=== PATIENT | male | born 1970 | race Caucasian/White ===

== ENCOUNTER → 2017-11-09 | Outpatient (CLI) | payer MEDICAID ==
[~2017-11-09] MED LIST: ALBU90AE IH; CYCL-259 PO; DOXY100C15 PO; GUAI600T31 PO; HYDR25TA11 PO; IBUP-1223 PO; IPRA12.9 IH; PRED20TA PO; RISP2TAB35 PO
[2017-11-09 14:55] LABS: MICROSCOPIC NOT IND
[2017-11-09 14:57] LABS: CULTURE INDICATED? NO
[2017-11-09 14:59] LABS: BASOPHILS # (AUTO) 0.07 x10^3/uL (0-0.1); BASOPHILS % (AUTO) 1 % (0-1); EOSINOPHILS # (AUTO) 0.48 x10^3/uL (0-0.4); EOSINOPHILS % (AUTO) 5 % (1-7); LYMPHOCYTES # (AUTO) 2.63 x10^3/uL (1-3.4); LYMPHOCYTES % (AUTO) 28 % (22-44); MD NO; MEAN CORPUSCULAR HEMOGLOBIN 30.2 pg (27.5-34.5); MEAN CORPUSCULAR HGB CONC 34.2 g/dL (33.2-36.2); MEAN CORPUSCULAR VOLUME 88.4 fL (81-97); MEAN PLATELET VOLUME 8.9 fL (7.4-10.4); MONOCYTES # (AUTO) 0.78 x10^3/uL (0.2-0.8); MONOCYTES % (AUTO) 8 % (2-9); NEUTROPHILS # (AUTO) 5.61 x10^3/uL (1.8-6.8); NEUTROPHILS % (AUTO) 59 % (42-75); PLATELET COUNT 202 x10^3/uL (130-400); RED BLOOD COUNT 5.46 x10^6/uL (4.38-5.82); RED CELL DISTRIBUTION WIDTH 15.2 % (9.4-14.8)
[2017-11-09 15:07] LABS: ALANINE AMINOTRANSFERASE 25 U/L (12-78); ALBUMIN 3.9 g/dL (3.4-5.0); ANION GAP 8 mmol/L (5-15); CALCIUM 8.9 mg/dL (8.5-10.1); CHLORIDE 104 mmol/L (98-107); CREATININE 1.11 mg/dL (0.7-1.3)
[2017-11-09 15:10] LABS: ALKALINE PHOSPHATASE 75 U/L (45-117); BILIRUBIN,TOTAL 0.5 mg/dL (0.2-1.0); TOTAL PROTEIN 7.4 g/dL (6.4-8.2)
[2017-11-09 15:11] LABS: INTERNATIONAL NORMALIZED RATIO 0.98 (0.93-1.1); PROTHROMBIN TIME 10.2 Seconds (9.6-11.5)
== END | disposition home or self-care (01) ==
LOC: STAR 13:56
PROVIDERS: ATTEND Orthopaedic Surgery Orthopaedic Surgery of the Spine
DX: Z01.818 Encounter for other preprocedural examination (principal)
CPT/HCPCS: 36415; 71046; 80053; 81003; 85025; 85610; 85730; 93005

== ENCOUNTER 2017-11-16 05:35 | Day surgery (SDC) | payer MEDICAID ==
[~2017-11-16] VITALS: Ht 162.6 cm; Wt 99.0 kg
[~2017-11-16 05:35] MED LIST changes: +ALBU18HF INH; +BACL20TA PO; +ENAL20TA PO; +FLUT1AER INH; +GABA800T2 PO; +IPRA12.9 INH; +LORA10TA3 PO; +PANT20TA3 PO; +PEG15DRO2 EACHEYE; +SERT50TA5 PO; +TRAZ-137 PO
[2017-11-16] MEDS ORDERED: LACTATED RINGERS 1,000 ML IV SCH (06:06)
[2017-11-16 06:09] VITALS: BP 133/82
== END 2017-11-16 06:49 | disposition home or self-care (01) ==
LOC: OUT 05:35
PROVIDERS: ATTEND Orthopaedic Surgery Orthopaedic Surgery of the Spine
DX: M51.26 Other intervertebral disc displacement, lumbar region (principal); Z53.9 Procedure and treatment not carried out, unspecified reason; F41.9 Anxiety disorder, unspecified; F32.9 Major depressive disorder, single episode, unspecified; J44.9 Chronic obstructive pulmonary disease, unspecified; F17.210 Nicotine dependence, cigarettes, uncomplicated; Z72.89 Other problems related to lifestyle; Z79.899 Other long term (current) drug therapy
CPT/HCPCS: J7120

== ENCOUNTER 2017-11-22 08:29 | Day surgery (SDC) | payer MEDICAID ==
[~2017-11-22] VITALS: Ht 162.6 cm; Wt 101.5 kg
[~2017-11-22 08:29] MED LIST changes: +BUPIVACAINE/PF-EPI 0.25% 1:200K ONE; +EPINEPHRINE 1 MG/ML, 1ML ONE; +LIDOCAINE/PF 0.5% ,50ML ONE; +THROMBIN 5,000 UNIT VIAL TP ONE; +VANCOMYCIN 1,000 MG ONE
[2017-11-22 09:02] VITALS: BP 120/78
[2017-11-22] MEDS ORDERED: LACTATED RINGERS 1,000 ML IV SCH (09:07)
[2017-11-22] MEDS ORDERED: ROCURONIUM 10 MG/ML,10ML ONE (09:57)
[2017-11-22] MEDS ORDERED: PROPOFOL 10 MG/ML, 20ML ONE (09:57)
[2017-11-22] MEDS ORDERED: ONDANSETRON 2MG/ML, 2ML ONE (09:57)
[2017-11-22] MEDS ORDERED: DEXAMETHASONE 4 MG/ML, 1ML ONE (09:57)
[2017-11-22] MEDS ORDERED: GLYCOPYRROLATE 0.2MG/1ML, 5ML ONE (09:57)
[2017-11-22] MEDS ORDERED: METOCLOPRAMIDE 5 MG/ML, 2ML ONE (09:57)
[2017-11-22] MEDS ORDERED: NEOSTIGMINE 1 MG/ML, 10ML ONE (09:57)
[2017-11-22] MEDS ORDERED: CEFAZOLIN 1,000 MG ONE (09:57)
[2017-11-22] MEDS ORDERED: MIDAZOLAM 1 MG/ML, 2ML IV PRN (10:00)
[2017-11-22] MEDS ORDERED: OXYcodone 5 MG/5 ML ORAL.SOL UDC PO PRN (10:00)
[2017-11-22] MEDS ORDERED: MEPERIDINE/PF 25MG/0.5ML IVPush PRN (10:00)
[2017-11-22] MEDS ORDERED: MIDAZOLAM 1 MG/ML, 2ML ONE (10:00)
[2017-11-22] MEDS ORDERED: HYDROmorphone 1 MG/ML, 1ML IV PRN (10:00)
[2017-11-22] MEDS ORDERED: ONDANSETRON 2MG/ML, 2ML IVPush PRN (10:00)
[2017-11-22] MEDS ORDERED: FENTANYL PF 100 MCG/2ML ONE ×3 (10:00→13:20)
[2017-11-22] MEDS ORDERED: LABETALOL 5MG/ML, 20ML IV PRN (10:00)
[2017-11-22] MEDS ORDERED: LIDOCAINE/PF 0.5% ,50ML ONE (10:28)
[2017-11-22] MEDS ORDERED: THROMBIN 5,000 UNIT VIAL TP ONE (10:28)
[2017-11-22] MEDS ORDERED: MEPERIDINE/PF 100 MG/ML ONE (12:10)
[2017-11-22] MEDS ORDERED: OXYcodone 5 MG/5 ML ORAL.SOL UDC ONE (13:20)
[2017-11-22] MEDS: FENTANYL PF 100 MCG/2ML IV PRN ×2 (13:23→13:35)
== END 2017-11-22 16:28 | disposition home or self-care (01) ==
LOC: OR 08:29 → OUT 16:28
PROVIDERS: ATTEND Orthopaedic Surgery Orthopaedic Surgery of the Spine
DX: M51.16 Intervertebral disc disorders with radiculopathy, lumbar region (principal); F41.9 Anxiety disorder, unspecified; F32.9 Major depressive disorder, single episode, unspecified; J44.9 Chronic obstructive pulmonary disease, unspecified; F17.210 Nicotine dependence, cigarettes, uncomplicated; Z79.899 Other long term (current) drug therapy; Z72.89 Other problems related to lifestyle
CPT/HCPCS: 63030; 72100; J0171; J0690; J1100; J2001; J2175; J2250; J2405; J2704; J2710; J2765; J3010; J3370; J3490; J7120

== ENCOUNTER 2018-02-03 19:41 | Emergency (ER) | payer MEDICAID ==
[~2018-02-03] VITALS: Ht 162.6 cm; Wt 105.0 kg
[~2018-02-03 19:41] MED LIST changes: -BUPIVACAINE/PF-EPI 0.25% 1:200K ONE; -EPINEPHRINE 1 MG/ML, 1ML ONE; -LIDOCAINE/PF 0.5% ,50ML ONE; -THROMBIN 5,000 UNIT VIAL TP ONE; -VANCOMYCIN 1,000 MG ONE
[2018-02-03 20:40] LABS: BASOPHILS # (AUTO) 0.12 x10^3/uL (0-0.1); BASOPHILS % (AUTO) 1 % (0-1); EOSINOPHILS # (AUTO) 0.42 x10^3/uL (0-0.4); EOSINOPHILS % (AUTO) 3 % (1-7); LYMPHOCYTES % (AUTO) 18 % (22-44); MD NO; MEAN CORPUSCULAR HGB CONC 34.2 g/dL (33.2-36.2); MEAN CORPUSCULAR VOLUME 90.6 fL (81-97); MEAN PLATELET VOLUME 9.6 fL (7.4-10.4); MONOCYTES # (AUTO) 0.77 x10^3/uL (0.2-0.8); MONOCYTES % (AUTO) 6 % (2-9); NEUTROPHILS # (AUTO) 8.97 x10^3/uL (1.8-6.8); NEUTROPHILS % (AUTO) 72 % (42-75); PLATELET COUNT 213 x10^3/uL (130-400); RED BLOOD COUNT 5.48 x10^6/uL (4.38-5.82); RED CELL DISTRIBUTION WIDTH 14.6 % (9.4-14.8)
[2018-02-03 20:47] LABS: ALBUMIN 3.4 g/dL (3.4-5.0); ANION GAP 7 mmol/L (5-15); CALCIUM 8.7 mg/dL (8.5-10.1); CHLORIDE 104 mmol/L (98-107)
[2018-02-03] MEDS ORDERED: HYDROcodone/APAP 5/325 TABLET ONE (20:48)
[2018-02-03 20:50] VITALS: BP 126/67
[2018-02-03 20:51] LABS: TROPONIN I < 0.015 ng/mL (0.000-0.045)
[2018-02-03] MEDS ORDERED: HYDROcodone/APAP 5/325 TABLET PO ONE (21:00)
== END 2018-02-03 21:48 | disposition home or self-care (01) ==
LOC: ED 21:12
DX: K85.00 Idiopathic acute pancreatitis without necrosis or infection (principal); R07.89 Other chest pain; F17.210 Nicotine dependence, cigarettes, uncomplicated; J44.9 Chronic obstructive pulmonary disease, unspecified; F12.10 Cannabis abuse, uncomplicated; Z87.09 Personal history of other diseases of the respiratory system
CPT/HCPCS: 36415; 71045; 74176; 80048; 82040; 83690; 84484; 85025; 93005; 99285

== ENCOUNTER 2020-10-26 01:52 | Emergency (ER) | payer MEDICAID ==
[~2020-10-26] VITALS: Ht 162.6 cm; Wt 77.8 kg
[~2020-10-26 01:52] MED LIST changes: -CYCL-259 PO; +CYCL10TA2 PO; +DOXY-246 PO; -DOXY100C15 PO; -ENAL20TA PO; +ENAL20TA9 PO; +FLUT1AER5 INH; -GABA800T2 PO; +GABA800T5 PO; +HYDR-826 PO; -HYDR25TA11 PO; +LORA-247 PO; -LORA10TA3 PO; -PANT20TA3 PO; +PANT20TA4 PO; +SERT50TA28 PO; -SERT50TA5 PO; -TRAZ-137 PO; +TRAZ-175 PO
[2020-10-26 01:54] VITALS: BP 155/88
--- NOTE | 2020-10-26 02:19 | NUR ---
PT AMBULATED TO ROOM. MD TO BEDSIDE AND XRAYS ORDERED.
[2020-10-26] MEDS ORDERED: OXYcodone/APAP 5/325MG TABLET ONE (03:28)
[2020-10-26] MEDS ORDERED: OXYcodone/APAP 5/325MG TABLET PO ONE (03:30)
--- NOTE | 2020-10-26 03:33 | NUR ---
patient medicated for pain. 12/05 at this time.
--- NOTE | 2020-10-26 03:36 | NUR ---
BREAK RN: DIRECTED TO DISCHARGE PT AT THIS TIME. PT A&OX4, AND HAS RECEIVED PAIN MEDS. F/U AND D/C INSTRUCTIONS GIVEN TO PT WITH PRESCRIPTIONS AND HE V/U. PT AMBULATED TO DISCHARGE DESK.
== END 2020-10-26 03:38 | disposition home or self-care (01) ==
LOC: ED 02:20
DX: G89.11 Acute pain due to trauma (principal); M79.641 Pain in right hand; M25.531 Pain in right wrist; J44.9 Chronic obstructive pulmonary disease, unspecified; X58.XXXA Exposure to other specified factors, initial encounter; Y93.89 Activity, other specified; Y92.89 Other specified places as the place of occurrence of the external cause; Y99.8 Other external cause status
CPT/HCPCS: 99284